=== PATIENT | male | born 1960 | race African-American/Black ===

== ENCOUNTER 2018-05-27 21:12 | Emergency (ER) | payer OTHER ==
[~2018-05-27] VITALS: Ht 167.6 cm; Wt 79.0 kg
[2018-05-27] MEDS ORDERED: HYDROCODONE/ACETAMINOPHEN 5/325MG TABLET PO ONE (23:45)
[2018-05-28 01:25] VITALS: BP 140/94
== END 2018-05-28 01:26 | disposition home or self-care (01) ==
LOC: ER 21:31
DX: S70.01XA Contusion of right hip, initial encounter (principal); G89.29 Other chronic pain; M25.551 Pain in right hip; R56.9 Unspecified convulsions; J45.909 Unspecified asthma, uncomplicated; M16.11 Unilateral primary osteoarthritis, right hip; F20.9 Schizophrenia, unspecified; W01.0XXA Fall on same level from slipping, tripping and stumbling without subsequent striking against object, initial encounter; Y93.9 Activity, unspecified; Y92.9 Unspecified place or not applicable; Z90.49 Acquired absence of other specified parts of digestive tract; Z98.890 Other specified postprocedural states
CPT/HCPCS: 73522; 73562; 73610; 99283

== ENCOUNTER 2018-05-30 02:09 | Emergency (ER) | payer OTHER ==
[~2018-05-30] VITALS: Ht 175.3 cm; Wt 78.0 kg
[2018-05-30] MEDS ORDERED: KETOROLAC 60MG/2ML VIAL IM ONE (08:00)
[2018-05-30 08:15] VITALS: BP 163/84
== END 2018-05-30 09:35 | disposition home or self-care (01) ==
LOC: ER 02:09
DX: M25.551 Pain in right hip (principal); M25.561 Pain in right knee; J45.909 Unspecified asthma, uncomplicated; F20.9 Schizophrenia, unspecified; R56.9 Unspecified convulsions; W10.8XXA Fall (on) (from) other stairs and steps, initial encounter; Y93.9 Activity, unspecified; Y92.9 Unspecified place or not applicable; Z90.49 Acquired absence of other specified parts of digestive tract
CPT/HCPCS: 73502; 73560; 96372; 99283; J1885